=== PATIENT | female | born 1975 | race African-American/Black ===

== ENCOUNTER 2023-12-18 17:33 | Emergency (ER) | payer BC ==
[2023-12-18 17:53] VITALS: RESP 18; BMI 29.4
[2023-12-18 18:52] VITALS: BP 136/100; PULSE 91; TEMP 98.1
== END 2023-12-18 18:53 | disposition home or self-care (01) ==
LOC: JER 17:33 → JERFT 17:33
DX: L03.115 Cellulitis of right lower limb (principal); L03.114 Cellulitis of left upper limb; L03.313 Cellulitis of chest wall; I10 Essential (primary) hypertension
CPT/HCPCS: 99283-25

== ENCOUNTER 2023-12-20 22:33 | Emergency (ER) | payer BC ==
[2023-12-20 22:50] VITALS: RESP 18; BMI 27.8
[2023-12-21 01:21] LABS: BASO % 0.3 % (0-2.0); EOS % 1.4 % (0-4.5); HEMATOCRIT 38.5 % (32.4-45.2); LYMPH % 25.4 % (8-40); MCH 28.9 pg (25.7-33.7); MCHC 33.8 g/dl (32.0-36.0); MEAN CELL VOLUME 85.4 fl (80-96); MEAN PLT VOLUME 9.5 fl (7.5-11.1); MONO % 6.5 % (3.8-10.2); NEUT % 66.4 % (42.8-82.8); PLATELET COUNT 314 10^3/uL (134-434); RBC 4.51 M/mm3 (3.60-5.2); WHITE BLOOD COUNT 8.2 K/mm3 (4.0-10.0)
[2023-12-21] MEDS ORDERED: DEXAMETHASONE SOD PHOSPHATE 10 MG/1 ML VIAL ONE (01:41)
[2023-12-21] MEDS: DEXAMETHASONE SOD PHOSPHATE 10 MG/1 ML VIAL IVPUSH ONE (01:53)
[2023-12-21 02:17] VITALS: BP 130/67; PULSE 76; TEMP 98
[2023-12-21 02:44] LABS: ERYTHROCYTE SEDIMENTATION RATE 23 mm/hr (0-20)
== END 2023-12-21 02:19 | disposition home or self-care (01) ==
LOC: JER 22:33
PROC: 3E033GC Introduction of Other Therapeutic Substance into Peripheral Vein, Percutaneous Approach (ICD-10-PCS; principal; 2023-12-21)
DX: M06.9 Rheumatoid arthritis, unspecified (principal)
CPT/HCPCS: 36415; 85025; 85651; 86140; 99284-25; J1100